=== PATIENT | female | born 1960 ===

== ENCOUNTER 2021-07-29 11:00 | Inpatient (IN) | payer OTHER ==
[~2021-07-29] VITALS: Ht 162.6 cm; Wt 94.8 kg
[~2021-07-29 11:00] MED LIST: CENTRUM PO; CO Q-10200 MG PO; COZAAR100 MG PO; MOBIC15 MG PO; ORPH100T PO; PROAIR RESPICL90 MCG IH; SINGULAIR10 MG PO; SYMBICORT 16010.2 GM IH
[2021-08-12] MEDS ORDERED: CENTRUM ADULTS1 EACH PO (08:43)
[2021-08-14] MEDS ORDERED: HYOSCYAMINE0.125 M1 SL (11:56)
[2021-08-14] MEDS ORDERED: OXYC1TAB9 PO (11:56)
[2021-08-14] MEDS ORDERED: INTESTINEX680 M1 PO (11:57)
== END 2021-08-14 15:54 | disposition home or self-care (01) | DRG 331 ==
LOC: SURG 07-31 10:45 → O/R 08-11 06:29 → SURH 08-11 16:12
PROVIDERS: ADMIT Surgery; ATTEND Surgery
PROC: 0DBN4ZZ Excision of Sigmoid Colon, Percutaneous Endoscopic Approach (ICD-10-PCS; 2021-08-11)
PROC: 3E0F7GC Introduction of Other Therapeutic Substance into Respiratory Tract, Via Natural or Artificial Opening (ICD-10-PCS; 2021-08-11)
PROC: 3E0F7SF Introduction of Other Gas into Respiratory Tract, Via Natural or Artificial Opening (ICD-10-PCS; 2021-08-11)
PROC: 0DBP4ZZ Excision of Rectum, Percutaneous Endoscopic Approach (ICD-10-PCS; principal; 2021-08-11 10:00)
DX: K57.32 Diverticulitis of large intestine without perforation or abscess without bleeding (principal); J45.20 Mild intermittent asthma, uncomplicated; G47.33 Obstructive sleep apnea (adult) (pediatric); E66.8 Other obesity; I11.9 Hypertensive heart disease without heart failure; Z20.822 Contact with and (suspected) exposure to COVID-19; Z80.0 Family history of malignant neoplasm of digestive organs

== ENCOUNTER 2025-09-13 09:25 | Outpatient (CLI) | payer OTHER ==
[~2025-09-13 09:25] MED LIST changes: +CENTRUM ADULTS1 EACH PO; +HYOSCYAMINE0.125 M1 SL; +INTESTINEX680 M1 PO; +OXYC1TAB9 PO
== END 2025-09-13 09:26 | disposition home or self-care (01) ==
LOC: SONOGRAMA 09:25
PROVIDERS: ATTEND Pathology Anatomic Pathology & Clinical Pathology
DX: D34 Benign neoplasm of thyroid gland (principal); E07.89 Other specified disorders of thyroid; E04.2 Nontoxic multinodular goiter